=== PATIENT | female | born 1965 | race Caucasian/White ===

== ENCOUNTER 2025-01-07 15:03 | Observation (INO) ==
--- NOTE | 2025-01-07 15:08 | Emergency Department Note ---
HPI - Chest Pain General Chief Complaint: Chest Pain Stated Complaint: chest pain Time Seen by Provider: 01/07/25 15:06 Source: patient Mode of arrival: ambulance Limitations: no limitations History of Present Illness HPI narrative: This is a 59 year old female patient that presents to the ER with c/o substernal chest pain today. patient denies any SOB, back pain, abdominal pain, numbness, tingling, weakness or N/V/D. Patient states she has a hx of CAD and TX's in the past. Patient is refusing ASA today states she cannot take it because she is having back surgery next week MD complaint: Reports chest pain Pertinent past history: Reports coronary artery disease Onset (ago): hour(s) (2) Timing of current episode: Reports constant Prior episodes: Yes Onset: Reports during rest Pain location: Reports substernal Pain radiation: Reports none Severity: mild Quality: Reports aching Relieving factors: Reports nothing Exacerbating factors: Reports nothing Treatment prior to arrival: Reports none Risk Factors Coronary artery disease risk factors: Reports hypertension Thoracic aortic dissection risk factors: Reports none Pulmonary embolism risk factors: Reports none Related Data On Oral Contraceptives: No Home Medications Medication Instructions Recorded Confirmed albuterol sulfate 90 mcg/actuation 2 puff inhalation Q4H PRN 05/14/24 01/07/25 aerosol inhaler shortness of breath or wheezing zejepchhjj-jropcpwfqodkd-mhmjjiuo 1 tab PO Q6H PRN migraine headache 05/14/24 01/07/25 50 mg-325 mg-40 mg tablet levothyroxine 100 mcg tablet 100 mcg PO DAILY 05/14/24 01/07/25 promethazine 25 mg tablet 25 mg PO Q6H PRN nausea and 05/14/24 01/07/25 vomiting rosuvastatin 40 mg tablet 40 mg PO DAILY 05/14/24 01/07/25 tizanidine 4 mg tablet 4 mg PO Q12H 05/14/24 01/07/25 trazodone 100 mg tablet 100 mg PO BEDTIME sleep 05/14/24 01/07/25 aspirin 81 mg tablet,delayed 81 mg PO DAILY 05/15/24 01/07/25 release (Adult Low Dose Aspirin) nitroglycerin 0.4 mg sublingual 0.4 mg sublingual Q5M PRN chest 05/15/24 01/07/25 tablet pain lorazepam 0.5 mg tablet 0.5 mg PO DAILY 01/07/25 01/07/25 potassium chloride 10 mEq 10 meq PO DAILY 01/07/25 01/07/25 tablet,extended release(part/cryst) tramadol 50 mg tablet 50 mg PO Q12H 01/07/25 01/07/25 zolpidem 10 mg tablet 10 mg PO BEDTIME 01/07/25 01/07/25 Allergies Allergy/AdvReac Type Severity Reaction Status Date / Time clopidogrel (From Plavix) Allergy Intermediate Verified 01/07/25 15:15 metronidazole (From Flagyl) Allergy Intermediate Verified 01/07/25 15:15 sumatriptan (From Imitrex) Allergy Intermediate Verified 01/07/25 15:15 metoclopramide (From Reglan) Allergy Unknown Verified 01/07/25 15:15 ondansetron (From Zofran) Allergy Unknown Verified 01/07/25 15:15 adhesive tape AdvReac Verified 01/07/25 15:15 Review of Systems Status of ROS 10 or more systems reviewed and unremark able except as noted in history and below Constitutional Denies: fever, chills, change in weight, fatigue, malaise or night sweats Eyes Denies: change in vision, blurry vision, blind spots, light sensitivity, eye discomfort or eye discharge Ears, nose, mouth, and throat Denies: throat pain, neck pain, throat swelling, difficulty swallowing, hoarseness or mouth pain Cardiovascular Reports: chest pain; Denies: palpitations, edema, swelling of feet/ankles, lightheadedness or shortness of breath with exertion Respiratory Denies: shortness of breath, cough, wheezing, stridor, pain on inspiration, change in phlegm color, coughing up blood or chest congestion Gastrointestinal Denies: abdominal pain, nausea, vomiting, coffee grounds in vomit, heartburn, diarrhea, constipation or bloating Genitourinary Denies: painful urination, urinary frequency, urinary urgency, urinary incontinence, blood in urine, difficulty voiding or decreased urine ouput Musculoskeletal Denies: back pain, neck pain, extremity pain, extremity swelling, joint pain, limited range of motion or joint swelling Integumentary/Breast Denies: rash, itching, redness, skin pain, skin tenderness, skin swelling, sores, new lesion or changing lesion Neurological Denies: headache, numbness in extremities, weakness in extremities, lack of coordination, dizziness or vertigo Psychiatric Denies: anxiety, mood swings, panic attacks, change in sleep pattern, hopelessness, loss of interest or irritability Endocrine Denies: excessive urination, excessive thirst, fatigue, cold intolerance, excessive sweating or flushing Hematologic/Lymphatic Denies: easy bruising, easy bleeding or enlarged lymph nodes Allergic/Immunologic Denies: hives, throat swelling, tongue swelling, facial swelling, wheezing, itchy eyes or seasonal allergies Exam Constitutional: normal general appearance and no apparent distress Vital Signs - 24 hr 01/07/25 15:03 01/07/25 15:03 Temperature 98.4 F Pulse Rate 84 Respiratory Rate 20 Blood Pressure 104/69 Pulse Oximetry 96 96 Oxygen Delivery Me thod Room Air Nasal Cannula HENMT: normocephalic, head/scalp atraumatic, hearing grossly normal bilaterally, external ears normal, nasal mucous membranes normal, external nose normal, oral mucous membranes normal and oropharynx normal Eyes: PERRL, EOMs intact bilaterally, conjunctivae normal and no scleral icterus Neck/C-Spine: visual inspection normal and trachea midline Lymph: no lymphadenopathy noted Chest: inspection of chest normal Respiratory: breath sounds equal bilaterally, normal respiratory effort, clear to auscultation bilaterally, no wheezes, no rales, no retractions and no use of accessory muscles Cardiovascular: normal heart rate noted, regular rhythm noted, no gallop, no rub, no murmur, no JVD, no clicks, peripheral pulses 2+ throughout, no bruits noted and no additional abnormal heart sounds Gastrointestinal: abdomen normal to inspection, abdomen soft to palpation, nontender to palpation, nontender to percussion, nondistended, normoactive bowel sounds, no hepatosplenomegaly, no masses, no pulsatile mass, no ascites and no hernia Genitourinary: no CVA tenderness Back/Pelvis: spine normal to inspection Extremities: normal to inspection, normal to palpation, no tenderness, full ROM, no joint enlargement and no deformity Neurology: no movement abnormality noted, no focal motor deficit noted, no sensory deficits noted, gait normal, speech normal, coordination normal, no pronator drift noted, no fasciculations noted and GCS normal Psychiatry: mental status grossly normal, oriented x3, thought process normal, cooperative and affect normal Skin: skin color normal Course Course Hospital Course: 1635: due to patients ongoing chest pain, risk factors and past medical history will admit patient to the hospital for further evaluation and treatment. VSS, no s/s of acute distress noted Vital Signs Vital signs: Vital Signs Temperature 98.4 F 01/07/25 15:03 Pulse Rate 84 01/07/25 15:03 Respiratory Rate 20 01/07/25 15:03 Blood Pressure 104/69 01/07/25 15:03 Pulse Oximetry 96 01/07/25 15:03 Oxygen Delivery Method Room Air 01/07/25 15:03 Temperature 98.4 F 01/07/25 15:03 Pulse Rate 84 01/07/25 15:03 Respiratory Rate 20 01/07/25 15:03 Blood Pressure 104/69 01/07/25 15:03 Pulse Oximetry 96 01/07/25 15:03 Oxygen Delivery Method Nasal Cannula 01/07/25 15:03 MDM - Chest Pain Differential Diagnosis Differential diagnosis: Likely stable angina, unstable angina pectoris, atypical chest pain, costochondritis and chest pain Medical Records Data Attestation: I reviewed the patient's medical records. Lab Data Attestation: I reviewed the patient's lab results. Labs: Lab Results 01/07/25 Range/Units 15:30 WBC 12.7 H (4.3-9.3) K/uL RBC 3.6 L (4.00-5.50) M/uL Hgb 11.9 L (12.5-15.8) gm/dL Hct 34.9 L (35.9-46.7) % MCV 97.0 H (81.0-93.7) fl MCH 33.0 H (27.6-32.2) pg MCHC 34.0 (33.1-35.3) g/dl RDW 14.3 H (11.4-14.2) % Plt Count 263 (152-353) K/uL MPV 7.5 (6.9-10.8) fl Gran % 62.3 (47.8-71.3) % Lymph % (Auto) 30.3 (20.0-43.0) % [place] % (Auto) 6.5 (3.6-9.8) % Eos % (Auto) 0.5 (0.4-2.8) % Baso % (Auto) 0.4 (0.1-0.85) Lymph # (Auto) 3.8 H (1.1-3.1) [place] # (Auto) 0.8 L (1.1-3.1) Eos # (Auto) 0.1 (0.0-0.2) Baso # (Auto) 0.1 (0.0-0.1) Absolute Gran (auto) 7.9 H (2.3-6.0) D-Dimer 128 (100-600) ng/mL Sodium 145 (136-145) mmol/L Potassium 3.9 (3.6-5.2) mmol/L Chloride 109.0 H (98-107) mmol/L Carbon Dioxide 27 (21-32) mmol/L Anion Gap 9.0 (4-14) mEq/L BUN 11 (7-18) mg/dL Creatinine 1.2 (0.6-1.3) mg/dL Estimated GFR 51.8 (>59.9) Glucose 88 (70-110) mg/dL Calcium 8.3 L (8.5-10.1) mg/dL Total Bilirubin 0.15 (0.0-1.0) mg/dL AST 12 L (15-37) U/L ALT 14 L (30-65) U/L Alkaline Phosphatase 81 (50-136) U/L Troponin I High Sens 4.60 (4.0-60.4) ng/L Total Protein 6.7 (6.4-8.2) g/dL Albumin 3.4 (3.4-5.0) g/dL Imaging Data Imaging ordered: Chest x-ray Attestation: I have reviewed the pertinent imaging results. ECG Data Attestation: I have reviewed the pertinent ECG results. Discharge Plan Discharge Patient Disposition: Admitted As Observation Condition: Stable Clinical Impression: Chest pain, CAD (coronary artery disease) of artery bypass graft Time of Disposition: 16:36 [facility] Medical History (Updated 01/07/25 @ 15:17 by Lillie Blanco RN) Migraine headache CHF (congestive heart failure) Myocardial infarction Multiple sclerosis Surgical History H/O foot surgery H/O wrist surgery H/O neck surgery H/O: hysterectomy Hx of appendectomy History of cholecystectomy S/P triple vessel bypass H/O heart artery stent Social History Smoking status: current every day smoker Problems where you live: no known problems Highest level of school completed/degree received: decline to answer Little interest or pleasure in doing things: not at all Feeling down, depressed, or hopeless: not at all Feel stressed/tense/nervous/anxious/difficulty sleeping: rather much Life stressors: financial matters Due to disability, difficulty making decisions: Yes
[2025-01-07] MEDS: MORPHINE SULFATE 2 MG/ML CARTRIDGE IV ONE (15:18)
[2025-01-07] MEDS ORDERED: 0.9 % SODIUM CHLORIDE 1000 ML 0 ML IV ONE (15:39)
[2025-01-07 15:41] LABS: Basophils #(Absolute) Auto 0.1 (0.0-0.1); Basophils%(Percent) Auto 0.4 (0.1-0.85); Eosinophils#(Absolute)Auto 0.1 (0.0-0.2); Eosinophils%(Percent) Auto 0.5 % (0.4-2.8); Granulocytes % - Auto 62.3 % (47.8-71.3); Granulocytes#(Absolute)- Auto 7.9 (2.3-6.0); Hematocrit 34.9 % (35.9-46.7); Monocytes #(Absolute)- Auto 0.8 (1.1-3.1); Monocytes %(Percent)- Auto 6.5 % (3.6-9.8); Platelet Count 263 K/uL (152-353); White Blood Count 12.7 K/uL (4.3-9.3)
[2025-01-07] MEDS: PROMETHAZINE HCL 25 MG TABLET PO STA (15:44)
[2025-01-07] MEDS: 0.9 % SODIUM CHLORIDE 500 ML IV ONE (15:44)
[2025-01-07] MEDS: 0.9 % SODIUM CHLORIDE 1000 ML 1,000 ML IV STA (15:49)
[2025-01-07 15:52] LABS: Potassium 3.9 mmol/L (3.6-5.2)
[2025-01-07] MEDS: NITROGLYCERIN 1 GM OINT...G. TD ONE (16:43)
[2025-01-07] MEDS: NITROGLYCERIN 1 GM OINT...G. TD SCH (21:53)
[2025-01-07] MEDS: ZOLPIDEM TARTRATE 10 MG TABLET PO SCH (21:53)
[2025-01-07] MEDS: TRAZODONE HCL 50 MG TABLET PO SCH (21:53)
[2025-01-07] MEDS: MORPHINE SULFATE 2 MG/ML CARTRIDGE IV PRN (21:54)
[2025-01-08 05:51] LABS: Basophils%(Percent) Auto 0.4 (0.1-0.85); Eosinophils#(Absolute)Auto 0.2 (0.0-0.2); Eosinophils%(Percent) Auto 1.5 % (0.4-2.8); Granulocytes % - Auto 53.7 % (47.8-71.3); Granulocytes#(Absolute)- Auto 6.4 (2.3-6.0); Hematocrit 34.4 % (35.9-46.7); Mean Corpuscular Volume 97.4 fl (81.0-93.7); Monocytes #(Absolute)- Auto 0.7 (1.1-3.1); Monocytes %(Percent)- Auto 5.6 % (3.6-9.8); Platelet Count 246 K/uL (152-353); White Blood Count 11.8 K/uL (4.3-9.3)
[2025-01-08 05:57] LABS: INR 0.92
[2025-01-08] MEDS: PANTOPRAZOLE SODIUM 40 MG TABLET.DR PO SCH (09:56)
[2025-01-08] MEDS: LEVOTHYROXINE SODIUM 100 MCG TABLET PO SCH (09:56)
[2025-01-08] MEDS: POTASSIUM CHLORIDE 10 MEQ CAPSULE.ER PO SCH (09:56)
[2025-01-08] MEDS: ATORVASTATIN CALCIUM 40 MG TABLET PO SCH (09:57)
[2025-01-08] MEDS: ASPIRIN 81 MG TABLET.DR PO SCH (09:58)
[2025-01-08] MEDS: ENOXAPARIN SODIUM 40 MG/0.4 ML SYRINGE SUBQ SCH (10:08)
[2025-01-08] MEDS: NITROGLYCERIN 0.4 MG TAB.SUBL (BOTTLE) SL ONE (11:49)
--- NOTE | 2025-01-08 12:20 | History & Physical Report ---
H&P: HPI History of Present Illness Chief complaint: chest pain Narrative: This is a 59 year old female patient that presents to the ER with c/o substernal chest pain today. Patient denies any SOB, back pain, abdominal pain, numbness, tingling, weakness or N/V/D. Patient states she has a hx of CAD and OH's in the past. Patient is refusing ASA today states she cannot take it because she is having back surgery next week. Admitted patient to med/surg for further observation and treatment. Day one of hospital stay, patient continues to complain of chest pain (). Patient states the pain radiates from the center of her chest to the left side and down her left arm. Patient is refusing Aspirin at this time due to back surgery coming up in one week. Nitroglycerin 0.4 mg PO was ordered by provider, nurse informed she was unable to give due to low BP. Nurse reported BP to provider. Patient stated she saw Dr. Zak Rodriguez MD for cardiology; her last visit was around [address] Chase Gutierrez MD out of [place] is patient's PCP. Review of Systems Status of ROS 10 or more systems reviewed and unremark able except as noted in history and below Constitutional Denies: fever, chills, change in weight, fatigue, malaise or night sweats Eyes Denies: change in vision, blurry vision, blind spots, light sensitivity, eye discomfort or eye discharge Ears, nose, mouth, and throat Denies: throat pain, neck pain, throat swelling, difficulty swallowing, hoarseness, mouth pain or vertigo Cardiovascular Reports: chest pain; Denies: palpitations, edema, swelling of feet/ankles, lightheadedness or shortness of breath with exertion Respiratory Denies: shortness of breath, cough, wheezing, stridor, pain on inspiration, change in phlegm color, coughing up blood or chest congestion Gastrointestinal Denies: abdominal pain, nausea, vomiting, coffee grounds in vomit, heartburn, diarrhea, constipation, bloating or difficulty swallowing Genitourinary Denies: painful urination, urinary frequency, urinary urgency, urinary incontinence, blood in urine, difficulty voiding or decreased urine ouput Musculoskeletal Denies: back pain, neck pain, extremity pain, extremity swelling, joint pain, limited range of motion or joint swelling Integumentary/Breast Denies: rash, itching, redness, skin pain, skin tenderness, skin swelling, sores, new lesion or changing lesion Neurological Denies: headache, numbness in extremities, weakness in extremities, lack of coordination, dizziness or vertigo Psychiatric Denies: anxiety, mood swings, panic attacks, change in sleep pattern, hopelessness, loss of interest or irritability Endocrine Denies: excessive urination, excessive thirst, fatigue, cold intolerance, excessive sweating or flushing Hematologic/Lymphatic Denies: easy bruising, easy bleeding or enlarged lymph nodes Allergic/Immunologic Denies: hives, throat swelling, tongue swelling, facial swelling, wheezing, itchy eyes or seasonal allergies [facility] Medical History (Updated 01/08/25 @ 12:40 by Malika Byers DO) Osteoarthritis Chronic pain Migraine headache CHF (congestive heart failure) Myocardial infarction Multiple sclerosis Surgical History H/O foot surgery H/O wrist surgery H/O neck surgery H/O: hysterectomy Hx of appendectomy History of cholecystectomy S/P triple vessel bypass H/O heart artery stent Social History Smoking status: current every day smoker Problems where you live: no known problems Highest level of school completed/degree received: high school Little interest or pleasure in doing things: not at all Feeling down, depressed, or hopeless: not at all Feel stressed/tense/nervous/anxious/difficulty sleeping: rather much Life stressors: financial matters Due to disability, difficulty making decisions: Yes Meds Home Medications and Allergies Home Medications Medication Instructions Recorded Confirmed Type dobzhbszje-fdkycmhfqkwgc-[id number] 1 tab PO Q6H PRN migraine headache 05/14/24 01/07/25 History 50 mg-325 mg-40 mg tablet levothyroxine 100 mcg tablet 100 mcg PO DAILY 05/14/24 01/07/25 History promethazine 25 mg tablet 25 mg PO Q6H PRN nausea and 05/14/24 01/07/25 History vomiting rosuvastatin 40 mg tablet 40 mg PO DAILY 05/14/24 01/07/25 History tizanidine 4 mg tablet 4 mg PO Q12H 05/14/24 01/07/25 History trazodone 100 mg tablet 100 mg PO BEDTIME sleep 05/14/24 01/07/25 History aspirin 81 mg tablet,delayed 81 mg PO DAILY 05/15/24 01/07/25 History release (Adult Low Dose Aspirin) nitroglycerin 0.4 mg sublingual 0.4 mg sublingual Q5M PRN chest 05/15/24 01/07/25 History tablet pain lorazepam 0.5 mg tablet 0.5 mg PO DAILY 01/07/25 01/07/25 History tramadol 50 mg tablet 50 mg PO Q12H 01/07/25 01/07/25 History zolpidem 10 mg tablet 10 mg PO BEDTIME 01/07/25 01/07/25 History Allergies Allergy/AdvReac Type Severity Reaction Status Date / Time clopidogrel (From Plavix) Allergy Intermediate Verified 01/07/25 15:15 metronidazole (From Flagyl) Allergy Intermediate Verified 01/07/25 15:15 sumatriptan (From Imitrex) Allergy Intermediate Verified 01/07/25 15:15 metoclopramide (From Reglan) Allergy Unknown Verified 01/07/25 15:15 ondansetron (From Zofran) Allergy Unknown Verified 01/07/25 15:15 adhesive tape AdvReac Verified 01/07/25 15:15 Exam Exam: Patient laying on left side with knees pulled up upon entering room for exam. States she is having chest pain again. Constitutional: abnormal general appearance (disheveled) and (lethargic), distress noted (mild), abnormal body habitus (obese), no limitations and alert Vital Signs - 24 hr 01/07/25 15:03 01/07/25 15:03 01/07/25 16:30 Temperature 98.4 F Pulse Rate 84 68 Pulse Rate [Left B rachial] Respiratory Rate 20 20 Blood Pressure 104/69 121/68 Blood Pressure [Le ft Arm] Pulse Oximetry 96 96 96 Oxygen Delivery Me thod Room Air Room Air Room Air 01/07/25 16:43 01/07/25 17:06 01/07/25 17:39 Temperature 98.3 F Pulse Rate 68 Pulse Rate [Left B rachial] 65 Respiratory Rate 20 19 Blood Pressure 122/74 Blood Pressure [Le ft Arm] 124/80 Pulse Oximetry 98 96 Oxygen Delivery Me thod Room Air Room Air Room Air 01/07/25 18:05 01/07/25 20:00 01/07/25 21:53 Temperature 98.0 F Pulse Rate 67 Pulse Rate [Left B rachial] 65 Respiratory Rate 20 17 Blood Pressure 123/76 103/62 Blood Pressure [Le ft Arm] 103/62 Pulse Oximetry 97 96 Oxygen Delivery La thod Room Air 01/07/25 22:53 01/07/25 23:50 01/08/25 03:28 Temperature 98.2 F Pulse Rate Pulse Rate [Left B rachial] 67 Respiratory Rate 16 Blood Pressure 103/62 109/63 Blood Pressure [Le ft Arm] 88/54 Pulse Oximetry 94 L [facility] 01/08/25 04:00 01/08/25 04:30 01/08/25 08:00 Temperature 97.7 F 97.6 F Pulse Rate Pulse Rate [Left B rachial] 66 75 Respiratory Rate 18 19 Blood Pressure 102/63 Blood Pressure [Le ft Arm] 102/63 100/60 Pulse Oximetry 100 95 [facility] Room Air HENMT: normocephalic, head/scalp atraumatic, hearing grossly normal bilater ally, external ears normal, nasal mucous membranes normal, external nose normal, oral mucous membranes normal and oropharynx normal Eyes: PERRL, EOMs intact bilaterally, conjunctivae normal and no scleral icterus Neck/C-Spine: visual inspection normal and trachea midline Lymph: no lymphadenopathy noted Chest: inspection of chest normal Respiratory: breath sounds equal bilaterally, normal respiratory effort, clear to auscultation bilaterally, no wheezes, no rales, no retractions and no use of accessory muscles Cardiovascular: normal heart rate noted, regular rhythm noted, no gallop, no rub, no murmur, no JVD, no clicks, peripheral pulses 2+ throughout, no bruits noted and no additional abnormal heart sounds Gastrointestinal: abdomen normal to inspection, abdomen soft to palpation, nontender to palpation, nontender to percussion, nondistended, normoactive bowel sounds, no hepatosplenomegaly, no masses, no pulsatile mass, no ascites and no hernia Genitourinary: no CVA tenderness Back/Pelvis: spine normal to inspection Extremities: normal to inspection, normal to palpation, no tenderness, full ROM, no joint enlargement and no deformity Neurology: no movement abnormality noted, no focal motor deficit noted, no sensory deficits noted, gait normal, speech normal, coordination normal, no pronator drift noted, no fasciculations noted and GCS normal Psychiatry: mental status grossly normal, oriented x3, thought process normal, cooperative and affect normal Skin: skin color normal Assessment and Plan Assessment and Plan (1) Angina at rest: Code(s): I20.89 - Other forms of angina pectoris (2) Costochondritis: Code(s): M94.0 - Chondrocostal junction syndrome [[place]] (3) CAD (coronary artery disease) of artery bypass graft: Qualifiers: Associated angina: with unspecified form of angina [place] vs. transplanted heart: [place] heart Qualified Code(s): I25.709 - Atherosclerosis of coronary artery bypass graft(s), unspecified, with unspecified angina pectoris Code(s): I25.810 - Atherosclerosis of coronary artery bypass graft(s) without angina pectoris (4) Lumbar radiculopathy: Code(s): M54.16 - Radiculopathy, lumbar region (5) Anxiety: Code(s): F41.9 - Anxiety disorder, unspecified (6) Drug use: Code(s): F19.90 - Other psychoactive substance use, unspecified, uncomplicated (7) Alcohol abuse: Code(s): F10.10 - Alcohol abuse, uncomplicated (8) Patient's noncompliance with other medical treatment and regimen for other reason: Code(s): Z91.198 - Patient's noncompliance with other medical treatment and regimen for other reason (9) CHF (congestive heart failure): Qualifiers: Heart failure chronicity: unspecified Heart failure type: unspecified Qualified Code(s): I50.9 - Heart failure, unspecified Code(s): I50.9 - Heart failure, unspecified (10) Multiple sclerosis: Code(s): G35 - Multiple sclerosis (11) History of OH (myocardial infarction): Code(s): I25.2 - Old myocardial infarction (12) Hypotension: Qualifiers: Hypotension type: hypotension due to drug Qualified Code(s): I95.2 - Hypotension due to drugs Code(s): I95.9 - Hypotension, unspecified (13) Chronic pain: Qualifiers: Chronic pain type: chronic pain syndrome Qualified Code(s): G89.4 - Chronic pain syndrome Code(s): G89.29 - Other chronic pain (14) Osteoarthritis: Qualifiers: Osteoarthritis location: multiple joints Osteoarthritis type: other secondary Qualified Code(s): M15.3 - Secondary multiple arthritis Code(s): M19.90 - Unspecified osteoarthritis, unspecified site Plan 0.9% NS at 100 ml per hour as tolerated by patient 250ml bolus Urinalysis and drug screen pending TSH repeat AU consult serial troponins and EKGS and prn with chest pain toradol prn pain patient declined this along with the aspirin as she wants back surgery and she can live with the pain cardiac monitoring Levothyroxine Sodium 100 mcg PO DAILY Potassium Chloride 10 meq PO DAILY Atorvastatin Calcium 80 mg PO DAILY Zolpidem Tartrate 10 mg PO BEDTIME Trazodone Hcl 100 mg PO BEDTIME Pantoprazole Sodium 40 mg PO DAILY Enoxaparin Sodium 40 mg SUBQ DAILY Nitroglycerin 1 gm TD BID6 Morphine Sulfate 1 mg IV Q4H PRN Results Labs Labs: CBC WBC 11.8 K/uL (4.3-9.3) H 01/08/25 05:30 RBC 3.5 M/uL (4.00-5.50) L 01/08/25 05:30 Hgb 11.7 gm/dL (12.5-15.8) L 01/08/25 05:30 Hct 34.4 % (35.9-46.7) L 01/08/25 05:30 MCV 97.4 fl (81.0-93.7) H 01/08/25 05:30 MCH 33.2 pg (27.6-32.2) H 01/08/25 05:30 MCHC 34.1 g/dl (33.1-35.3) 01/08/25 05:30 RDW 14.4 % (11.4-14.2) H 01/08/25 05:30 Plt Count 246 K/uL (152-353) 01/08/25 05:30 MPV 7.4 fl (6.9-10.8) 01/08/25 05:30 Gran % 53.7 % (47.8-71.3) 01/08/25 05:30 Lymph % (Auto) 38.8 % (20.0-43.0) 01/08/25 05:30 [place] % (Auto) 5.6 % (3.6-9.8) 01/08/25 05:30 Eos % (Auto) 1.5 % (0.4-2.8) 01/08/25 05:30 Baso % (Auto) 0.4 (0.1-0.85) 01/08/25 05:30 Lymph # (Auto) 4.6 (1.1-3.1) H 01/08/25 05:30 [place] # (Auto) 0.7 (1.1-3.1) L 01/08/25 05:30 Eos # (Auto) 0.2 (0.0-0.2) 01/08/25 05:30 Baso # (Auto) 0.0 (0.0-0.1) 01/08/25 05:30 Absolute Gran (auto) 6.4 (2.3-6.0) H 01/08/25 05:30 BMP Sodium 145 mmol/L (136-145) 01/08/25 05:30 Potassium 4.0 mmol/L (3.6-5.2) 01/08/25 05:30 Chloride 109.0 mmol/L (98-107) H 01/08/25 05:30 Carbon Dioxide 28 mmol/L (21-32) 01/08/25 05:30 Anion Gap 8.0 mEq/L (4-14) 01/08/25 05:30 BUN 9 mg/dL (7-18) 01/08/25 05:30 Creatinine 0.7 mg/dL (0.6-1.3) 01/08/25 05:30 Estimated GFR 99.0 (>59.9) 01/08/25 05:30 Glucose 80 mg/dL (70-110) 01/08/25 05:30 Calcium 8.4 mg/dL (8.5-10.1) L 01/08/25 05:30 Total Bilirubin 0.15 mg/dL (0.0-1.0) 01/08/25 05:30 AST 11 U/L (15-37) L 01/08/25 05:30 ALT 13 U/L (30-65) L 01/08/25 05:30 Alkaline Phosphatase 70 U/L (50-136) 01/08/25 05:30 Total Protein 6.2 g/dL (6.4-8.2) L 01/08/25 05:30 Albumin 3.2 g/dL (3.4-5.0) L 01/08/25 05:30 Cardiac Enzymes Troponin I High Sens 5.30 ng/L (4.0-60.4) 01/08/25 03:20 Liver Function Total Bilirubin 0.15 mg/dL (0.0-1.0) 01/08/25 05:30 AST 11 U/L (15-37) L 01/08/25 05:30 ALT 13 U/L (30-65) L 01/08/25 05:30 Alkaline Phosphatase 70 U/L (50-136) 01/08/25 05:30 Total Protein 6.2 g/dL (6.4-8.2) L 01/08/25 05:30 Albumin 3.2 g/dL (3.4-5.0) L 01/08/25 05:30 Imaging Imaging ordered: Chest x-ray Radiologist's impression: XR CHEST 1V Date of Service: 01/07/25 HISTORY: pain; COMPARISON: October 05, 2024 FINDINGS: The trachea is midline. The cardiac silhouette is mildly enlarged with status post CABG surgery. The lungs are clear without focal infiltrate or effusion. The bony thorax is unremarkable. IMPRESSION: No acute cardiopulmonary disease.
[2025-01-08 14:30] LABS: Specific Gravity Urine 1.015 (1.001-1.035); Urine Appearance Slightly Cloudy (CLEAR); Urine Color YELLOW (STRAW/YELL.)
[2025-01-08 14:31] LABS: Urine Blood TRACE (NEG - TRACE); Urine Urobilinogen Normal (NORMAL)
[2025-01-08] MEDS: SODIUM CHLORIDE 0.45 % 1,000 ML IV SCH (14:38)
[2025-01-08 14:40] LABS: Amphetamine Screen Urine NEG. (NEGATIVE); Cannabinoid Screen Urine NEG. (NEGATIVE); Cocaine Screen Urine NEG. (NEGATIVE); Methadone Screen Urine NEG. (NEGATIVE); Opiate Screen Urine POS. (NEGATIVE)
[2025-01-08] MEDS: NITROGLYCERIN 1 GM OINT...G. TD SCH (16:03)
[2025-01-08] MEDS: ASPIRIN 81 MG TAB.CHEW PO SCH (17:08)
[2025-01-08 20:56] VITALS: BP 97/50; PULSE 74; RESP 18; TEMP 97.6
== END 2025-01-08 22:55 | disposition short-term general hospital (02) ==
LOC: ED 15:03 → MS 15:03
PROVIDERS: ADMIT Family Medicine; ATTEND Family Medicine